=== PATIENT | female | born 1990 | race Caucasian/White ===

== ENCOUNTER 2016-12-27 09:55 | Emergency (ER) | payer SELFPAY ==
[~2016-12-27 09:55] MED LIST: TYLE3 PO
[2016-12-27 09:57] VITALS: BP 116/74; PULSE 78; RESP 20; TEMP 97.6; O2SAT 100
[2016-12-27] MEDS ORDERED: SODIUM CHLOR 0.9% 1000 ML INJ 1,000 ML IV ONE (10:42)
[2016-12-27] MEDS ORDERED: SODIUM CHLORIDE 0.9% FLUSH 10 ML FLUSH IVF PRN (10:45)
--- NOTE | 2016-12-27 10:46 | PD ---
HPI Chief Complaint: Headache Time Seen by Provider: 10:42 Travel History International Travel<30 days: No Contact w/Intl Traveler<30days: No Traveled to known affect area: No History of Present Illness HPI 26-year-old female with history of no significant past medical issues, presents to the ER today with 2 days history of headaches which she states she feels in her temples, worsens with doing things such as bending down and yelling at her kids, currently complains of 4 out of 10 headache at she states sometimes it worsens with light. She has had a subjective fever overnight. She denies any neck stiffness, vomiting, cold symptoms, or other symptoms. She states that she usually does not get headaches. She does not know any sick contacts. Modifying Factors: None Associated Signs & Symptoms: Headache, subjective fever Risk Factors: None PFSH Past Medical History Diminished Hearing: No Herniated Disk: Yes ?: Unknown LMP: 11/26/16 : 2 Para: 2 Social History Alcohol Use: Yes (SOCIALLY) Tobacco Use: Yes Substance Use: No Allergies-Medications (Allergen,Severity, Reaction): Coded Allergies: No Known Allergies (Unverified , 12/27/16) Reported Meds & Prescriptions Reported Meds & Active Scripts Active No Active Prescriptions or Reported Medications Review of Systems Except as stated in HPI: all other systems reviewed are Neg Physical Exam Narrative GENERAL: Well-developed young white female patient currently none acute distress. Awake and oriented 3. Sitting in a lighted room without issues. SKIN: Focused skin assessment warm/dry. HEAD: Atraumatic. Normocephalic. EYES: Pupils equal and round. No scleral icterus. No injection or drainage. ENT: No nasal bleeding or discharge. Mucous membranes pink and moist. No pharyngeal erythema. EARS: Bilateral pinnae and external canals appear within normal limits. Bilateral tympanic membranes without erythema, dullness or perforation. NECK: Trachea midline. No JVD. CARDIOVASCULAR: Regular rate and rhythm. No murmur appreciated. RESPIRATORY: No accessory muscle use. Clear to auscultation. Breath sounds equal bilaterally. GASTROINTESTINAL: Abdomen soft, non-tender, nondistended. Hepatic and splenic margins not palpable. MUSCULOSKELETAL: No obvious deformities. No clubbing. No cyanosis. No edema. NEUROLOGICAL: Awake and alert. No obvious cranial nerve deficits. Motor grossly within normal limits. Normal speech. PSYCHIATRIC: Appropriate mood and affect; insight and judgment normal. Data Data Last Documented VS Vital Signs Date Time Temp Pulse Resp B/P Pulse Ox O2 Delivery O2 Flow Rate FiO2 12/27/16 11:09 98 Room Air 12/27/16 09:57 97.6 78 20 116/74 Orders Complete Blood Count With Diff (12/27/16 10:42) Basic Metabolic Panel (Bmp) (12/27/16 10:42) Westergren Sedimentation Rate (12/27/16 10:42) C-Reactive Protein (Crp) (12/27/16 10:42) Ct Brain W/O Iv Contrast(Rout) (12/27/16 10:42) Ecg Monitoring (12/27/16 10:42) Iv Access Insert/Monitor (12/27/16 10:42) Oximetry (12/27/16 10:42) Sodium Chloride 0.9% Flush (Ns Flush) (12/27/16 10:45) Sodium Chlor 0.9% 1000 Ml Inj (Ns 1000 M (12/27/16 10:42) Ed Urine Pregnancytest Poc (12/27/16 10:42) Influenzae A/B Antigen (12/27/16 10:42) Metoclopramide Inj (Reglan Inj) (12/27/16 11:15) Diphenhydramine Inj (Benadryl Inj) (12/27/16 11:15) Labs Laboratory Tests Test 12/27/16 11:05 White Blood Count 5.0 TH/MM3 Red Blood Count 4.17 MIL/MM3 Hemoglobin 12.6 GM/DL Hematocrit 37.4 % Mean Corpuscular Volume 89.7 FL Mean Corpuscular Hemoglobin 30.3 PG Mean Corpuscular Hemoglobin 33.8 % Concent Red Cell Distribution Width 13.2 % Platelet Count 246 TH/MM3 Mean Platelet Volume 6.8 FL Neutrophils (%) (Auto) 62.6 % Lymphocytes (%) (Auto) 26.6 % Monocytes (%) (Auto) 9.6 % Eosinophils (%) (Auto) 0.7 % Basophils (%) (Auto) 0.5 % Neutrophils # (Auto) 3.2 TH/MM3 Lymphocytes # (Auto) 1.3 TH/MM3 Monocytes # (Auto) 0.5 TH/MM3 Eosinophils # (Auto) 0.0 TH/MM3 Basophils # (Auto) 0.0 TH/MM3 CBC Comment DIFF FINAL Differential Comment Erythrocyte Sedimentation Rate 19 mm/hr Sodium Level 142 MEQ/L Potassium Level 3.4 MEQ/L Chloride Level 106 MEQ/L Carbon Dioxide Level 28.0 MEQ/L Anion Gap 8 MEQ/L Blood Urea Nitrogen 6 MG/DL Creatinine 0.65 MG/DL Estimat Glomerular Filtration 111 ML/MIN Rate Random Glucose 117 MG/DL Calcium Level 8.8 MG/DL MDM Medical Decision Making Medical Screen Exam Complete: Yes Emergency Medical Condition: Yes Medical Record Reviewed: Yes Interpretation(s) Laboratory Tests Test 12/27/16 11:05 Mean Platelet Volume 6.8 FL (7.0-11.0) Monocytes (%) (Auto) 9.6 % (0.0-8.0) Potassium Level 3.4 MEQ/L (3.5-5.1) Blood Urea Nitrogen 6 MG/DL (7-18) Random Glucose 117 MG/DL (74-106) Last [address] 12/27/16 1042 Signed Impressions: Service Date/Time: Sunday, December 27, 2016 10:47 - CONCLUSION: No acute disease. Gualberto Valero MD FACR Differential Diagnosis Headaches, low-grade feversviral syndrome versus influenza versus migraine headaches versus meningitis versus acute intracranial processes Narrative Course CT of the brain is negative for any signs of acute processes. Lab work did not show any significant leukocytosis and she does not have influenza. At this point, symptoms are more likely to be viral and she has no meningeal signs. I am not suspecting a meningitis or other acute process in this case. However, I have talked to the patient regarding findings and the only further study that could be considered would be a lumbar puncture should we want to rule out meningitis and other acute issues further. At this point, patient declines and states that she feels better. Patient states understanding that I cannot completely rule out those acute issues without further studies. My plan would be to release her with symptomatic relief for headache. In addition, she also shows me a 1 cm round circular rash on the right arm which has been scaling and itching for several days. She may have a fungal dermatitis in this case which I plan to also give her a antifungal cream for. Follow-up with primary care physician. Return for any worsening in symptoms as needed. The plan has been discussed with her and she states understanding. Diagnosis Primary Impression: Headache Med/Other Pt SpecificInfo: Prescription(s) given Scripts Terbinafine Topical (Lamisil Advanced Topical)1 % Gel1 Applic TOPICAL BID #1 GM Ref 0 Prov:Santiago Swift MD 12/27/16 Promethazine (Phenergan)25 Mg [id number] Mg PO Q6H PRN (NAUSEA OR VOMITING) #12 TAB Ref 0 Prov:Santiago Swift MD 12/27/16 Ibuprofen (Motrin Ib)200 Mg [id number] Mg PO QID PRN (PAIN SCALE 1 TO 10) #21 Prov:Santiago Swift MD 12/27/16 Disposition: 01 DISCHARGE HOME Condition: Stable Santiago Swift MD Dec 27, 2016 10:46
[2016-12-27 11:09] VITALS: O2SAT 98
--- NOTE | 2016-12-27 11:13 | RADHPO ---
EXAM DATE/TIME: 12/27/2016 10:47 [facility] COMPARISON: No previous studies available for comparison. INDICATIONS : Cephalgia. RADIATION DOSE: 65.19 CTDIvol (mGy) MEDICAL HISTORY : None SURGICAL HISTORY : None. ENCOUNTER: Initial ACUITY: 2 days PAIN SCALE: 7/10 LOCATION: cranial TECHNIQUE: Multiple contiguous axial images were obtained of the head. Using automated exposure control and adj ustment of the mA and/or kV according to patient size, radiation dose was kept as low as reasonably a chievable to obtain optimal diagnostic quality images. FINDINGS: CEREBRUM: The ventricles are normal for age. No evidence of midline shift, mass lesion, hemorrhage or acute in farction. No extra-axial fluid collections are seen. POSTERIOR FOSSA: The cerebellum and brainstem are intact. The 4th ventricle is midline. The cerebellopontine angle i s unremarkable. EXTRACRANIAL: The visualized portion of the orbits is intact. SKULL: The calvaria is intact. No evidence of skull fracture. CONCLUSION: No acute disease. Gualberto Valero MD FACR on December 27, 2016 at 11:10 Board Certified Radiologist. This report was verified electronically.
[2016-12-27 11:14] LABS: AUTOMATED NEUTROPHIL # 3.2 TH/MM3 (1.8-7.7); BASOPHIL % 0.5 % (0.0-2.0); EOSINOPHIL % 0.7 % (0.0-4.0); HEMATOCRIT 37.4 % (35.0-46.0); HEMO FLAGS DIFF FINAL; LYMPH % 26.6 % (9.0-44.0); LYMPHOCYTE # 1.3 TH/MM3 (1.0-4.8); MEAN CELL VOLUME 89.7 FL (80.0-100.0); MEAN CORPUSCULAR HEMOGLOBIN 30.3 PG (27.0-34.0); MEAN CORPUSCULAR HGB CONC 33.8 % (32.0-36.0); MONO % 9.6 % (0.0-8.0); NEUT % 62.6 % (16.0-70.0); PLATELET COUNT 246 TH/MM3 (150-450); RED BLOOD COUNT 4.17 MIL/MM3 (4.00-5.30); RED CELL DISTRIBUTION WIDTH 13.2 % (11.6-17.2)
[2016-12-27] MEDS ORDERED: diphenhydrAMINE HCL 50 MG/ML VIAL IV PUSH ONE (11:15)
[2016-12-27] MEDS ORDERED: METOCLOPRAMIDE HCL 10 MG/2 ML VIAL IV PUSH ONE (11:15)
[2016-12-27 11:24] LABS: POTASSIUM 3.4 MEQ/L (3.5-5.1)
[2016-12-27] MEDS ORDERED: PROM25TA10 PO (12:45)
[2016-12-27] MEDS ORDERED: IBUP-1129 PO (12:45)
[2016-12-27] MEDS ORDERED: LAMI1GEL TOPICAL (12:46)
[2016-12-27 12:48] VITALS: BP 119/85; PULSE 84; RESP 16; O2SAT 100
== END 2016-12-27 13:04 | disposition home or self-care (01) ==
LOC: PHED 09:55
DX: R51 Headache (principal); Z72.0 Tobacco use
CPT/HCPCS: 70450; 80048; 84703; 85025; 85652; 86140; 87804; 96374; 96375; 99285; J1200; J2765; J7030